=== PATIENT | male | born 1950 | race Caucasian/White ===

== ENCOUNTER → 2016-09-25 | Outpatient (CLI) | payer BC, MEDICARE ==
--- NOTE | 2016-09-25 11:03 | CR ---
EXAMINATION: Two-view chest (PA and Lateral views). HISTORY: Preprocedural examination. FINDINGS: The trachea is midline. The cardiomediastinal silhouette is within normal limits. No pulmonary infil trates, effusions or pneumothorax. Osseous structures appear unremarkable. IMPRESSION: No acute cardiopulmonary process.
== END ==
LOC: MW.CHRC 09:57
PROVIDERS: ATTEND Family Medicine
DX: Z01.818 Encounter for other preprocedural examination (principal); M54.9 Dorsalgia, unspecified
CPT/HCPCS: 71020; 71020-26; 99204

== ENCOUNTER 2023-02-15 13:49 | Emergency (ER) | payer OTHER, MEDICARE ==
[2023-02-15] MEDS ORDERED: Acetaminophen/HYDROcodone 325-5 MG Tab PO ONE (14:02)
[2023-02-15] MEDS ORDERED: Ondansetron 4 MG Tab.DIS PO ONE (14:02)
[2023-02-15 14:11] VITALS: BP 149/98; PULSE 92
== END 2023-02-15 15:28 | disposition home or self-care (01) ==
LOC: MW.ED 13:49
DX: S20.212A Contusion of left front wall of thorax, initial encounter (principal); Z88.8 Allergy status to other drugs, medicaments and biological substances; E11.9 Type 2 diabetes mellitus without complications; I10 Essential (primary) hypertension; W01.0XXA Fall on same level from slipping, tripping and stumbling without subsequent striking against object, initial encounter
CPT/HCPCS: 71101; 99284; A9270; 99283

== ENCOUNTER 2025-04-10 16:45 | Emergency (ER) | payer OTHER, MEDICARE ==
[2025-04-10 17:02] LABS: BASOPHILS ABSOLUTE AUTO 0.09 K/uL (0.00-0.20); BASOPHILS PERCENT AUTO 0.9 % (0.0-1.0); EOSINOPHILS ABSOLUTE AUTO 0.15 K/uL (0.00-0.45); EOSINOPHILS PERCENT AUTO 1.5 % (0.0-6.0); IMMATURE GRAN ABSOLUTE AUTO 0.07 K/uL (0.00-0.05); IMMATURE GRAN PERCENT AUTO 0.7 % (0.0-0.4); LYMPHOCYTES ABSOLUTE AUTO 1.48 K/uL (1.00-4.80); LYMPHOCYTES PERCENT AUTO 14.5 % (24.0-44.0); MEAN PLATELET VOLUME 9.7 fL (9.4-12.4); MONOCYTES ABSOLUTE AUTO 1.09 K/uL (0.00-0.80); MONOCYTES PERCENT AUTO 10.7 % (0.0-8.0); NEUTROPHILS ABSOLUTE AUTO 7.32 K/uL (1.80-7.70); NEUTROPHILS PERCENT AUTO 71.7 % (41.0-71.0); NRBC ABSOLUTE 0.00 K/uL (0.00-0.02); NRBC PERCENT 0.0 /100WBC (0.0-0.2); PLATELET COUNT,PLT 358 K/uL (150-400); RED BLOOD CELL COUNT 5.47 M/uL (4.52-5.90); WHITE BLOOD CELL COUNT,WBC 10.20 K/uL (3.9-11.3)
[2025-04-10 17:13] LABS: INR 0.97 (0.86-1.11)
[2025-04-10 17:19] LABS: BLOOD UREA NITROGEN,BUN 19 mg/dL (7.0-18.0); CARBON DIOXIDE,CO2 25.1 mmol/L (21.0-32.0); CHLORIDE,CL 98 mmol/L (98-107); CREATININE 1.7 mg/dL (0.8-1.3); ESTIMATED GFR 42 mL/min (>60); GLUCOSE RANDOM 144 mg/dL (74-106); POTASSIUM,K 4.4 mmol/L (3.5-5.1); SODIUM,NA 136 mmol/L (136-148)
[2025-04-10 18:58] VITALS: BP 118/78; PULSE 76
== END 2025-04-10 19:19 | disposition home or self-care (01) ==
LOC: MW.ED 16:45
DX: S22.41XA Multiple fractures of ribs, right side, initial encounter for closed fracture (principal); S00.83XA Contusion of other part of head, initial encounter; I10 Essential (primary) hypertension; E11.9 Type 2 diabetes mellitus without complications; Z88.8 Allergy status to other drugs, medicaments and biological substances; Z79.899 Other long term (current) drug therapy; Z79.82 Long term (current) use of aspirin; Z87.891 Personal history of nicotine dependence; W18.39XA Other fall on same level, initial encounter; Y93.89 Activity, other specified
CPT/HCPCS: 36415; 70450; 71250; 72125; 80048; 85025; 85610; 96374; 99284; A9270; J2270; 99283